=== PATIENT | male | born 1965 | race Two or more races ===

== ENCOUNTER 2018-11-22 07:33 | Emergency (ER) | payer OTHER ==
[~2018-11-22] VITALS: Ht 175.3 cm; Wt 94.3 kg
[2018-11-22 07:37] VITALS: BP 113/81
[2018-11-22] MEDS ORDERED: IBUPROFEN 600 MG TABLET PO ONE (08:13)
[2018-11-22] MEDS ORDERED: TDAP [DIPH/PERTUSSIS/TET] 0.5 ML VIAL IM ONE (08:14)
[2018-11-22] MEDS: IBUPROFEN 600 MG TABLET PO ONE (08:21)
[2018-11-22] MEDS: TDAP [DIPH/PERTUSSIS/TET] 0.5 ML VIAL IM ONE (08:21)
== END 2018-11-22 08:31 | disposition home or self-care (01) ==
LOC: ER 07:36
DX: S61.211A Laceration without foreign body of left index finger without damage to nail, initial encounter (principal); W26.8XXA Contact with other sharp object(s), not elsewhere classified, initial encounter; Y93.89 Activity, other specified; Y92.89 Other specified places as the place of occurrence of the external cause; Y99.8 Other external cause status
CPT/HCPCS: 12001; 90471; 90715; 99283; A6402